=== PATIENT | female | born 1985 | race Two or more races ===

== ENCOUNTER 2022-10-03 19:46 | Observation (INO) | payer SELFPAY ==
[~2022-10-03] VITALS: Ht 165.1 cm; Wt 59.4 kg
== END 2022-10-03 21:31 | disposition home or self-care (01) ==
LOC: LDRP 19:46
PROVIDERS: ADMIT Obstetrics & Gynecology; ATTEND Obstetrics & Gynecology
DX: O26.893 Other specified pregnancy related conditions, third trimester (principal); R10.30 Lower abdominal pain, unspecified; R10.2 Pelvic and perineal pain; Z3A.36 36 weeks gestation of pregnancy
CPT/HCPCS: 59025; 81002; G0378

== ENCOUNTER 2022-10-25 13:15 | Inpatient (IN) | payer MEDICAID ==
[~2022-10-25] VITALS: Ht 154.9 cm; Wt 59.9 kg
[2022-10-25] MEDS ORDERED: PHISODERM TOP SOLN 240ML BTL TOP PRN (13:30)
[2022-10-25] MEDS ORDERED: DERMOPLAST 60ML BOTTLE TOP PRN (13:30)
[2022-10-25] MEDS ORDERED: LIDOCAINE 2%HCL (LOCAL ANESTH.) INJ 10ml MDV IJ PRN (13:30)
[2022-10-25] MEDS ORDERED: PROMETHAZINE HCL 25 MG/ML 1ML IV PRN (13:30)
[2022-10-25] MEDS ORDERED: WITCH HAZEL-GLYCERIN PAD TOP PRN (13:30)
[2022-10-25] MEDS ORDERED: BUTORPHANOL TARTRATE 2 MG/1 ML VIAL IV PRN ×2 (13:30)
[2022-10-25] MEDS ORDERED: miSOPROStol 50 MCG per PRE-CUT 1/2 TAB PO PRN (13:30)
[2022-10-25 14:54] LABS: Basophils # (auto) 0 10 ^3/uL (0-0.2); Basophils % (auto) 0.5 % (0.0-2.0); Eosinophils # (auto) 0.1 10 ^3/uL (0-0.8); Eosinophils % (auto) 0.9 % (0.0-7.0); Hematocrit 37.3 % (36.0-46.0); Hemoglobin 12.1 g/dL (12.2-16.2); Lymphocytes # (auto) 1.5 10 ^3/uL (0.4-5.4); Lymphocytes % (auto) 18.6 % (10.0-50.0); Mean Corpuscular Hemoglobin 26.3 pg (28.0-32.0); Mean Corpuscular Hgb Conc. 32.4 g/dL (32.0-36.0); Mean Corpuscular Volume 81.3 fL (80.0-100.0); Monocytes # (auto) 0.6 10 ^3/uL (0-1.3); Monocytes % (auto) 7.5 % (0.0-12.0); Neutrophils # (auto) 5.7 10 ^3/uL (1.6-8.6); Neutrophils % (auto) 72.5 % (37.0-80.0); Red Blood Cells 4.58 10^6/uL (4.0-5.20); Red Cell Distribution Width 16.8 % (11.8-14.3); White Blood Cell 7.9 10^3/uL (4.4-10.8)
[2022-10-25 15:03] LABS: Urine Bacteria NONE SEEN /hpf (None Seen); Urine Blood 1+ /uL (Negative); Urine Specific Gravity 1.007 (1.001-1.035); Urine WBC 1 /hpf (0 - 5)
[2022-10-25 15:17] LABS: INR 0.87 (0.9-1.15); Partial Thromboplastin Time 28.2 sec (24.6-33.4)
[2022-10-25 15:20] LABS: Alcohol, Urine < 3.0 mg/dL (0-10); Amphetamine Screen, Urine NEGATIVE (NEGATIVE); Barbiturate Scree,Urine NEGATIVE (NEGATIVE); Benzodiazephine Screen, Urine NEGATIVE (NEGATIVE); Cannabinoid Screen, Urine NEGATIVE (NEGATIVE); Cocaine Screen, Urine NEGATIVE (NEGATIVE); Opiate Scree,Urine NEGATIVE (NEGATIVE); Phencyclidine Screen, Urine NEGATIVE (NEGATIVE)
[2022-10-25 15:30] LABS: Anion Gap 9 (5-15); BUN/Creatinine Ratio 8.9; Blood Urea Nitrogen 5 mg/dL (7-18); Carbon Dioxide 22 mmol/L (21-32); Chloride 109 mmol/L (98-107); GFR African American 156 mL/min; GFR Non-African American 129 mL/min; Glucose 83 mg/dL (74-106); Potassium 3.9 mmol/L (3.5-5.1); Sodium 140 mmol/L (136-145)
[2022-10-25 15:32] LABS: Alanine Aminotransferase 18 U/L (13-56); Albumin 2.4 g/dL (3.4-5.0); Alkaline Phosphatase 203 U/L (45-117); Aspartate Aminotransferase 23 U/L (15-37); Bilirubin, Total 0.4 mg/dL (0.2-1.0); Calcium 8.5 mg/dL (8.5-10.1); Total Protein 7.3 g/dL (6.4-8.2)
[2022-10-25] MEDS ORDERED: ePHEDrine SULFATE 50 MG/ML AMP ONE (18:10)
[2022-10-25] MEDS ORDERED: fentaNYL CITRATE 100 MCG/2 ML VL ONE (18:10)
[2022-10-25] MEDS ORDERED: LIDOCAINE HCL 2 %PF INJ 10ML AMP IJ ONE ×2 (18:10→18:30)
[2022-10-25] MEDS ORDERED: ROPIVACAINE HCL 200 ML ONE (18:10)
[2022-10-25] MEDS ORDERED: LACT. RINGERS/OXYTOCIN 20UNITS 500 ML IV ONE ×2 (18:15→18:45)
[2022-10-25] MEDS ORDERED: TERBUTALINE SULFATE 1 MG/ML 1ML VIAL SC PRN (18:15)
[2022-10-25] MEDS ORDERED: NALOXONE HCL 0.4 MG/ML VIAL IV ONE (18:30)
[2022-10-25] MEDS ORDERED: ROPIVACAINE HCL 200 ML EPI SCH ×3 (18:30→19:00)
[2022-10-25] MEDS ORDERED: LACTATED RINGER'S 1,000 ML IV ONE (18:30)
[2022-10-25] MEDS ORDERED: fentaNYL CITRATE 100 MCG/2 ML VL IV ONE (18:30)
[2022-10-25] MEDS ORDERED: ePHEDrine SULFATE 50 MG/ML AMP IV ONE (18:30)
[2022-10-25] MEDS: LACTATED RINGER'S 1,000 ML IV SCH (19:28)
[2022-10-26] MEDS: LACTATED RINGER'S 1,000 ML IV SCH (03:02)
[2022-10-26] MEDS ORDERED: METHYLERGONOVINE MALEATE 0.2 MG/ML AMP IM ONE ×2 (04:28→05:30)
[2022-10-26] MEDS ORDERED: ONDANSETRON HCL 4 MG/2 ML VIAL ONE (04:33)
[2022-10-26] MEDS ORDERED: DOCU-94 PO (05:19)
[2022-10-26] MEDS ORDERED: CEPH500T PO (05:19)
[2022-10-26] MEDS ORDERED: ONDANSETRON ODT 4 MG TAB PO PRN (05:30)
[2022-10-26] MEDS: ceFAZolin 1GM/50ML 50 ML IV SCH ×3 (05:47→22:11)
[2022-10-26 06:44] VITALS: BP 134/54
[2022-10-26 11:00] VITALS: BP 107/51
[2022-10-26] MEDS: IBUPROFEN 600 MG TAB PO PRN ×3 (11:53→22:12)
[2022-10-26] MEDS: ACETAMINOPHEN 325 MG TAB PO PRN ×2 (11:54→19:21)
[2022-10-26 15:00] VITALS: BP 96/49
[2022-10-26 19:00] VITALS: BP 104/56
[2022-10-26] MEDS ORDERED: DOCUSATE SOD 100 MG CAP PO SCH (22:00)
[2022-10-26 23:00] VITALS: BP 94/54
[2022-10-27 03:00] VITALS: BP 97/62
[2022-10-27] MEDS: ACETAMINOPHEN 325 MG TAB PO PRN (03:42)
[2022-10-27] MEDS ORDERED: IBU600T PO (05:37)
[2022-10-27] MEDS: ceFAZolin 1GM/50ML 50 ML IV SCH (05:41)
[2022-10-27 06:55] VITALS: BP 106/58
[2022-10-27 07:06] LABS: Rubella Antibodies, IgG 2.72 index (Immune >0.99)
[2022-10-27 08:06] LABS: RPR Non Reactive (Non Reactive)
[2022-10-27] MEDS: IBUPROFEN 600 MG TAB PO PRN (10:57)
== END 2022-10-27 11:25 | disposition home or self-care (01) | DRG 560 ==
LOC: OBSVTOIN 13:15 → LDRP 13:15
PROVIDERS: ADMIT Obstetrics & Gynecology; ATTEND Obstetrics & Gynecology
PROC: 10E0XZZ Delivery of Products of Conception, External Approach (ICD-10-PCS; principal; 2022-10-26)
PROC: 0KQM0ZZ Repair Perineum Muscle, Open Approach (ICD-10-PCS; 2022-10-26)
PROC: 3E0R3BZ Introduction of Anesthetic Agent into Spinal Canal, Percutaneous Approach (ICD-10-PCS; 2022-10-26)
PROC: 00HU33Z Insertion of Infusion Device into Spinal Canal, Percutaneous Approach (ICD-10-PCS; 2022-10-26)
PROC: 0W8NXZZ Division of Female Perineum, External Approach (ICD-10-PCS; 2022-10-26)
DX: O69.81X0 Labor and delivery complicated by cord around neck, without compression, not applicable or unspecified (principal); Z37.0 Single live birth; O70.1 Second degree perineal laceration during delivery; Z20.822 Contact with and (suspected) exposure to COVID-19; Z3A.39 39 weeks gestation of pregnancy
CPT/HCPCS: 36415; 59025; 59409; 62282; 80053; 80307; 81001; 81002; 82962; 85025; 85610; 85730; 86592; 86703; 86762; 86803; 86850; 86900; 86901; 87340; 87426; 94760; 94762; 96360; 96361; 96365; 96366; 96372; 96374; G0378; J0690; J2405; J2590

== ENCOUNTER 2025-01-11 11:24 | Observation (INO) | payer MEDICAID ==
[~2025-01-11 11:24] MED LIST: CEPH500T PO; DOCU-94 PO; IBU600T PO
[2025-01-11] MEDS ORDERED: PREN-96 PO (12:35)
--- NOTE | 2025-01-12 05:48 | DVHDS2 ---
Physician Discharge Progress N Final Diagnosis: PLACENTA PREVIA,AMA Operations or Procedures: Operations or Procedures NST,SONO Condition on Discharge: Good Disposition: Home Discharge Instructions: Diet: Regular Activity: PELVIC REST Medications: NA Follow Up Care: Specialist: CS ON 01-21 Discharge Statement: "Patient was advised to return to the ER or call 911 if any headaches, dizziness, shortness of breath, chest pain, abdominal pain, bleeding, fevers, or worsening of medical condition. Patient was counseled about treatment plan, medications, possible side effects, patientverbalized understanding. All questions were answered to the best of my ability. This discharge took greater then 30 minutes in planning, reviewing documentation, counseling the patient, and discussing with other team members." Visit Coding OBGYN Date of Service: Jan 11, 2025 Billing Provider: JEANIE ARTEAGA DO SQL SERVER ARCHITECT Common Visit Codes: 83139-UHR/OBS SAME DATE (HIGH) SQL SERVER ARCHITECT Procedure Codes: 32130-37- NON-STRESS TEST JEANIE ARTEAGA DO Jan 12, 2025 05:48
== END 2025-01-11 12:42 | disposition home or self-care (01) ==
LOC: LDRP 11:24 → UNDOADMOB 11:31
PROVIDERS: ADMIT Obstetrics & Gynecology; ATTEND Obstetrics & Gynecology
DX: O44.03 Complete placenta previa NOS or without hemorrhage, third trimester (principal); O99.283 Endocrine, nutritional and metabolic diseases complicating pregnancy, third trimester; E03.9 Hypothyroidism, unspecified; O09.513 Supervision of elderly primigravida, third trimester; Z3A.35 35 weeks gestation of pregnancy; Z79.899 Other long term (current) drug therapy
CPT/HCPCS: 59025; 81002; 94760; G0378

== ENCOUNTER 2025-01-18 10:32 | Observation (INO) | payer MEDICAID ==
[~2025-01-18 10:32] MED LIST changes: +PREN-96 PO
--- NOTE | 2025-01-18 11:34 | DVH ---
BIOPHYSICAL PROFILE HISTORY: Complete Previa Comparison Study: None TECHNIQUE: Multiple real-time grayscale sonographic images through the gravid uterus of the fetus wi th duplex Doppler color flow and M-mode spectral analysis FINDINGS: BIOPHYSICAL PROFILE: breathing score: 2 movement score: 2 tone score: 2 Quantitative ISRAEL score: 2 (ISRAEL: 14.8 Cm.) Total score: 8 The cervix is not visualized Single live fetus in cephalic presentation. heart rate 136 beats per minute. Posterior placenta without previa or abruption IMPRESSION: Biophysical profile score: 8
--- NOTE | 2025-01-18 15:58 | DVHDS2 ---
Physician Discharge Progress N Final Diagnosis: placenyta previa 36wks Operations or Procedures: Operations or Procedures nst 36wks,sono Other Interventions Other Interventions seen by lucia Condition on Discharge: Good Disposition: Home Discharge Instructions: Diet: Regular Activity: No Restrictions, As Tolerated Medications: na Follow Up Care: Specialist: angel montalvo cs Discharge Statement: "Patient was advised to return to the ER or call 911 if any headaches, dizzin ess, shortness of breath, chest pain, abdominal pain, bleeding, fevers, or worsening of medical condition. Patient was counseled about treatment plan, medications, possible side effects, patientverbalized understanding. All questions were answered to the best of my ability. This discharge took greater then 30 minutes in planning, reviewing documentation, counseling the patient, and discussing with other team members." Visit Coding OBGYN Date of Service: Jan 18, 2025 Billing Provider: JEANIE ARTEAGA DO SEALS ENGRAVER Common Visit Codes: 04294-OXC/OBS SAME DATE (HIGH) SEALS ENGRAVER Consultation Codes: 24498-XNAHPHRTG CONSULT <55MIN SEALS ENGRAVER Procedure Codes: 14722-48- NON-STRESS TEST JEANIE ARTEAGA DO Jan 18, 2025 15:58
== END 2025-01-18 11:55 | disposition home or self-care (01) ==
LOC: UNDOADMOB 10:32 → LDRP 10:32 → UNDODISOB 11:55
PROVIDERS: ADMIT Obstetrics & Gynecology; ATTEND Obstetrics & Gynecology
DX: O44.03 Complete placenta previa NOS or without hemorrhage, third trimester (principal); Z3A.36 36 weeks gestation of pregnancy; Z79.899 Other long term (current) drug therapy; Z98.890 Other specified postprocedural states
CPT/HCPCS: 59025; 76818; 81002; 94760; G0378

== ENCOUNTER 2025-01-20 06:50 | Inpatient (IN) | payer MEDICAID ==
[~2025-01-20] VITALS: Ht 157.5 cm; Wt 54.4 kg
[2025-01-20 09:41] LABS: Eosinophils # (auto) 0.1 10 ^3/uL (0-0.8); Lymphocytes # (auto) 1.4 10 ^3/uL (0.4-5.4)
[2025-01-20 09:43] LABS: Basophils # (auto) 0 10 ^3/uL (0-0.2); Basophils % (auto) 0.5 % (0.0-2.0); Eosinophils % (auto) 1.1 % (0.0-7.0); Hematocrit 35.1 % (36.0-46.0); Hemoglobin 11.4 g/dL (12.2-16.2); Lymphocytes % (auto) 19.8 % (10.0-50.0); Mean Corpuscular Hemoglobin 25.7 pg (28.0-32.0); Mean Corpuscular Hgb Conc. 32.5 g/dL (32.0-36.0); Mean Corpuscular Volume 79.2 fL (80.0-100.0); Monocytes # (auto) 0.6 10 ^3/uL (0-1.3); Monocytes % (auto) 9.1 % (0.0-12.0); Neutrophils # (auto) 4.8 10 ^3/uL (1.6-8.6); Neutrophils % (auto) 69.5 % (37.0-80.0); Platelet Count (auto) 169 10^3/uL (140-450); Red Blood Cells 4.44 10^6/uL (4.0-5.20); Red Cell Distribution Width 18.9 % (11.8-14.3); White Blood Cell 6.9 10^3/uL (4.4-10.8)
[2025-01-20 09:57] LABS: Alanine Aminotransferase 13 U/L (7-40); Albumin 3.8 g/dL (3.2-4.8); Aspartate Aminotransferase 21 U/L (13-40); Chloride 106 mmol/L (98-107); Glucose 78 mg/dL (74-106); Potassium 3.7 mmol/L (3.5-5.1); Sodium 138 mmol/L (136-145)
[2025-01-20 09:58] LABS: Bilirubin, Total 0.5 mg/dL (0.2-1.0); Total Protein 6.5 g/dL (5.7-8.2)
[2025-01-20 10:07] LABS: INR 0.88 (0.9-1.15); Partial Thromboplastin Time 26.8 SEC (24.5-34.5); Prothrombin Time 9.4 sec (9.3-11.8)
[2025-01-20 10:09] LABS: Alkaline Phosphatase 142 U/L (46-116); BUN/Creatinine Ratio 8.6 (10.0-20.0); Blood Urea Nitrogen < 5 mg/dL (9-23); Calcium 8.5 mg/dL (8.7-10.4)
[2025-01-20 10:54] LABS: Anion Gap 8 (5-15); Carbon Dioxide 24 mmol/L (20-31)
[2025-01-21] VITALS (13 sets, daily range): BP systolic 88–117; BP diastolic 26–64; PULSE 61–78; RESP 15–22; TEMP 97.7–98; O2SAT 95–100
--- NOTE | 2025-01-21 07:00 | DVHHP2 ---
OB CC & HPI Date Date of Admission: Jan 21, 2025 Patient Identification: : 3 Para: 2 EDC: Jan 21, 2025 EGA: 37 + placenta previa patient had positive urine test at 3 weeks Chief Complaints: Reason for admission: section (Patient had 1st trimester ultrasound confirming dates as well as urine test 1st trimester/serum quant HCG) Indication for : other (placenta previa) Other reason for admission: Dr. Gamboa had scheduled this patient for section secondary to placenta previa. Patient had been counseled to be sectioned by perinatology. Kelsie PLASCENCIA' I am covering on the weekend and she was scheduled on my Wednesday call by Dr Gamboa based on Kelsie's recommendation. Dr Gamboa and I discussed the case in person. 01/20/2024; and has history of hyperthyroid on medication. Admission Nurse Assessment Rev: Yes History of Present Complaints We discussed the risks benefits complications alternatives not limited to pulmonary hypoplasia morbidity and mortality. Risks benefits of continuing with placenta previa. We also discussed general risks infection bleeding anesthesia acute chronic pain damage to adjacent organs bowel bladder ureters nerves muscles. We discussed acute chronic pain nerve entrapment risks. The general risks of DVT PE mi stroke . Patient understands risks associated with subsequent pregnancies versus elective . She had originally consented for tubal ligation but changed her mind and would like to use some other form of control at this time. All questions answered and encouraged. Kelsie PLASCENCIA perinatology. Past Medical History Cardiac: No pertinent Hx Pulmonary: No pertinent Hx Central Nervous System: No pertinent Hx GI: No pertinent Hx Hemotology/Oncology: No pertinent Hx Hepatobiliary: No pertinent Hx Psychiatric: No pertinent Hx Musculoskeletal: No pertinent Hx Rheumotologic: No pertinent Hx Infectious Disease: No peritnent Hx ENT: No pertinent Hx Renal/: No pertinent Hx Endocrine: Hyperthyroidism Dermatology: No pertinent Hx Past Surgical History: No pertinent Hx OB History OB History Care: Good Care Ultrasounds: Normal mid trimester US Obstetrical Complications: None, Other (placenta previa) Medical Complications: None Allergies: Coded Allergies: NO KNOWN ALLERGIES (Unverified , 10/25/22) Home Meds Active Scripts Ibuprofen Micronized (MOTRIN TABLET) 600 Mg Tb, 600 MG PO Q6HP PRN, #20 TAB Prov:REESE,JAZMA Y DO 10/27/22 Docusate Sodium (Colace) 100 Mg Cap, 1 CAP PO BID, #60 CAP 2 Refills Prov:JEANIE GAMBOA DO 10/26/22 Cephalexin Monohydrate (Cephalexin) 500 Mg Tab, 1 TAB PO QID for 7 Days, #28 TAB Prov:JEANIE GAMBOA DO 10/26/22 Reported Medications Vit W/ Ferrous Fumara ( One Daily) Daily Tab, 1 TAB PO DAILY, #30 TAB 11 Refills 01/11/25 Family & Social History Family/Social History Blood Type: Unknown Rubella: unknown RPR/VDRL: Unknown GBS Status: Unknown HBsAG: Unknown (Lab results pending) Review of Systems Constitutional: No symptom reported Ears, Nose, & Throat: No symptom reported Eyes: No symptom reported Pulmonary/Respiratory: No symptom reported Cardiovascular: No symptom reported Gastrointestinal: No symptom reported Genitourinary: No symptom reported Musculoskeletal: No symptom reported Skin: No symptom reported Psychiatric: No symptom reported Endocrine: No symptom reported Hemotologic/Lymphatic: No symptom reported OB Admission Exam Physical Exam HEENT: TMs Normal, Fontanelles Normal, Nasal Mucosa Normal, Eyes non-injected, Oropharynx Normal, PERRLA, Moist Membranes, EOMI Heart: Rhythm Normal Lungs: Clear Abdomen: Non tender Extremities: Normal Reflexes: Normal Cervical Dilatation: None Heart Rate: 140's Decelerations: No Decelerations Short Term Variability: Present Penitentiary Variability: Average (6-25) Contractions on Admission: None OB Plan Plan Admitting Diagnosis: 37 weeks , Placenta previa, hyper thyroid' Supervisor Lending Activities: Mimi side trimmer Plan: Section Other Plan: Restart her hyperthyroid meds as well as routine recovery orders status post . HERLINDA ALEXANDRA DO Jan 21, 2025 06:59
--- NOTE | 2025-01-21 08:26 | DVHOP2 ---
Operative Report - 2 Report Details Date: 01/21/25 Preop Diagnosis: Thirty-seven weeks intrauterine placenta previa abdominal pain Postop Diagnosis: Same Surgeon: Edinson Caicedo Hull Line Crew Member: Martín RICErn neurosurgicalsurgical technologist Anesthesiologist: NOE Barragan Anesthesia: Regional (Spinal) Drains: Jesus catheter Implant: None Consent: The patient was informed of the risks and benefits of the procedure. These include but are not limited to complications of anesthesia, postoperative infection, incomplete relief of symptoms, recurrence of symptoms, damage to blood vessels, nerves and tendons, deep venous thrombosis, pulmonary embolism and possible need for repeat surgery in the future. Estimated Blood Loss: 600 cc Findings: Vigorous cry and tone, 08/07, male Indications for Surgery: Partial previa Name of Procedure Performed Primary low transverse section Procedure Details Procedure Details: Patient brought to the operating room placed in sitting position spinal placed without difficulty she was then placed left lateral tilt prepped draped sterile fashion. Low Pfannenstiel incision used with scalpel down to the rectus muscles were just nicked in midline carried laterally with scissors rectus muscle midline peritoneum identified entered with sharp dissection peritoneal incision was then extended this cephalad and caudad vesicouterine peritoneum was then identified and dissected off lower uterine segment low-transverse incision made with scalpel down to the current membranes were hour glassing clear amniotic fluid. Chorionic membranes were ruptured infant found in vertex position we could place a lower uterine segment and infant's head essentially delivered spontaneously nose and mouth bulb suctioned shoulders and torso also delivered without difficulty. Cord clamp delay was performed for 60 seconds then away handed off to awaiting respiratory and nursing team. Umbilical blood sample removed blood cord gas was also taken placenta removed bluntly uterus exteriorized cleared of all clots and debris and closed with double layer of 0 Vicryl. The previa appeared to be posterior lower uterine segment. Compl ete hemostasis achieved the vesicouterine peritoneum was incorporated into the 2nd layer of uterine closure. This point the gutters cul de sacs adnexa were all cleared of all clots and debris irrigated. Uterus having been placed in utero incision with good hemostasis peritoneum closed with running continuous 2- 0 Vicryl after instrument sponge count correct x1. Rectus muscle then closed running continuous of 0 PDS after ensuring the rectus muscles had excellent hemostasis. Camper's Abhi's fascia closed with interrupted sutures of 2-0 chromic skin closed with 2-0 sub Q prolene on Keif needle, uterus vaginal lower uterine segment cleared of all clots and debris bluntly bluntly with good uterine tone. Specimen: Placenta umbilical cord blood umbilical cord gas Condition Good Disposition PACU for mom and nursery for . HERLINDA CAICEDO DO Jan 21, 2025 08:26
[2025-01-21] MEDS ORDERED: ceFAZolin 2 GM/D5W50ml 50 ML IV ONE ×2 (09:15→09:46)
[2025-01-21] MEDS ORDERED: LACTATED RINGER'S 1,000 ML IV ONE (09:15)
[2025-01-21] MEDS ORDERED: KETOROLAC TROMETH 30 MG/ML 1ML VIAL ONE (09:26)
[2025-01-21] MEDS ORDERED: DexAMETHasone SOD PHOS 10MG/1ML VIAL INJ ONE (09:26)
[2025-01-21] MEDS ORDERED: LIDOCAINE 1% (LOCAL ANESTH.) PF 5ml SDV ONE (09:26)
[2025-01-21] MEDS ORDERED: ONDANSETRON HCL 4 MG/2 ML VIAL ONE (09:26)
[2025-01-21] MEDS ORDERED: oxyTOCIN 10 UNIT/ML 10ML VIAL ONE (09:27)
[2025-01-21] MEDS ORDERED: fentaNYL CITRATE 100 MCG/2 ML VL ONE (09:27)
[2025-01-21] MEDS ORDERED: MORPHINE SULF PF 5 MG/10 ML VIAL ONE (09:27)
[2025-01-21] MEDS ORDERED: ePHEDrine SULFATE 50 MG/ML AMP ONE (11:26)
[2025-01-21] MEDS ORDERED: HYDROmorphone HCL 2 MG/ML VL/or syr IV PRN (12:30)
[2025-01-21] MEDS ORDERED: NALBUPHINE HCL 10 MG/1ml INJECTION IV ONE (12:30)
[2025-01-21] MEDS ORDERED: ceFAZolin 1GM/50ML 50 ML IV SCH (12:30)
[2025-01-21] MEDS ORDERED: SODIUM CHLORIDE 0.9% 1,000 ML IV SCH (12:30)
[2025-01-21] MEDS ORDERED: diphenhdrAMINE HCL 50 MG/1 ML VL IV PRN (12:30)
[2025-01-21] MEDS ORDERED: NALOXONE HCL 0.4 MG/ML VIAL IV PRN (12:30)
[2025-01-21] MEDS ORDERED: NS/OXYTOCIN 20UNITS 1,000 ML IV SCH (12:30)
[2025-01-21] MEDS ORDERED: MORPHINE SULFATE 4 MG/ML SYR/VIAL IV PRN (12:30)
[2025-01-21] MEDS ORDERED: ONDANSETRON HCL 4 MG/2 ML VIAL IV PRN ×2 (12:30)
[2025-01-21 12:52] LABS: Urine Bacteria FEW /hpf (None Seen); Urine Blood Negative /uL (Negative); Urine Clarity Clear (Clear); Urine Color Light-Yellow (Yellow); Urine Protein, UAD Negative (Negative); Urine Specific Gravity 1.008 (1.001-1.035); Urine Squamous Epithelial Cell FEW /hpf (<5); Urine Urobilinogen Normal (Negative); Urine WBC 1 /HPF (0-5)
[2025-01-21 12:58] LABS: Amphetamine Screen, Urine Neg (NEGATIVE); Barbiturate Scree,Urine Neg (NEGATIVE); Benzodiazephine Screen, Urine Neg (NEGATIVE)
[2025-01-21 12:59] LABS: Cannabinoid Screen, Urine Neg (NEGATIVE); Cocaine Screen, Urine Neg (NEGATIVE); Opiate Scree,Urine Neg (NEGATIVE); Phencyclidine Screen, Urine Neg (NEGATIVE)
[2025-01-21] MEDS: LACTATED RINGER'S 1,000 ML IV SCH (20:15)
[2025-01-21] MEDS: ceFAZolin 1GM/50ML 50 ML IV SCH (20:15)
[2025-01-21] MEDS: ACETAMINOPHEN IV 1000 MG/100ML (10MG/ML) IV PRN (20:16)
[2025-01-22] VITALS (15 sets, daily range): BP systolic 85–104; BP diastolic 38–67; PULSE 61–92; RESP 16–18; TEMP 97.9–98.7; O2SAT 95–97
--- NOTE | 2025-01-22 05:54 | DVHPN2 ---
Chief Complaints Patient reports: No new complaints, Feels better, Other (minimal lochia pain controlled 03/08) Nursing reports: No new complaints, No abdominal pain, No chest pain, No dizziness, No cough Objective Vitals Vital Signs Date Time Temp Pulse Resp B/P (MAP) Pulse Ox O2 Delivery O2 Flow Rate FiO2 01/22/25 02:00 66 17 85/47 (60) 95 01/21/25 23:00 98.0 98.0 01/21/25 19:00 Room Air 01/21/25 12:17 98 Medications Current Medications Medications (Trade) Dose Ordered Sig/Carl Route PRN Reason Start Time Stop Time Status Last Admin Acetaminophen (Ofirmev) 1,000 mg Q8H PRN IV PAIN SCALE 4-6 OR TEMP>100.4 01/21/25 17:30 01/21/25 20:16 Cefazolin Sodium 50 ml @ 100 mls/hr Q8H IV 01/21/25 19:00 01/22/25 11:29 01/22/25 02:59 Diphenhydramine HCl (Benadryl Injection) 25 mg Q4HP PRN IV FOR ITCHING 01/21/25 12:30 Lactated Ringer's 1,000 ml @ 125 mls/hr Q8H IV 01/21/25 09:15 01/21/25 20:15 Morphine Sulfate 2 mg Q4HP PRN IV SEVERE PAIN (7-10 PAIN SCALE) 01/21/25 12:30 Ondansetron HCl (Zofran) 4 mg Q4HP PRN IV NAUSEA / VOMITING 01/21/25 12:30 Oxytocin 1,000 ml @ 125 mls/hr Q8H IV 01/21/25 12:30 Cancel General: Normal Head/Eyes: Normal Neck: Normal Lungs: Normal Cardiovascular: Normal Abdominal: Normal (wound c/d/I ) Musculoskeletal: Normal Extremities: Normal (without pain or edema) Neurological: Normal Studies Laboratory Tests 01/20/25 09:23 Test 01/20/25 09:23 Range/Units Serum Glucose 78 74-106 mg/dL Ass/Plan Assessment POD #1 stable improved Plan advance care HERLINDA ALEXANDRA DO Jan 22, 2025 05:53
[2025-01-22] MEDS ORDERED: HYDROcodone-ACET 10/325MG TAB PO PRN (08:00)
[2025-01-22] MEDS ORDERED: HYDROcodone-ACET 5/325MG TAB PO PRN (08:00)
[2025-01-22] MEDS: HYDROcodone-ACET 5/325MG TAB PO PRN (08:05)
[2025-01-22 09:15] LABS: Basophils # (auto) 0 10 ^3/uL (0-0.2); Basophils % (auto) 0.2 % (0.0-2.0); Eosinophils # (auto) 0 10 ^3/uL (0-0.8); Eosinophils % (auto) 0.2 % (0.0-7.0); Red Blood Cells 3.42 10^6/uL (4.0-5.20)
[2025-01-22 09:18] LABS: Hematocrit 27.1 % (36.0-46.0); Hemoglobin 8.7 g/dL (12.2-16.2); Lymphocytes # (auto) 1.5 10 ^3/uL (0.4-5.4); Lymphocytes % (auto) 12.2 % (10.0-50.0); Mean Corpuscular Hemoglobin 25.4 pg (28.0-32.0); Mean Corpuscular Volume 79.3 fL (80.0-100.0); Neutrophils # (auto) 9.8 10 ^3/uL (1.6-8.6); Neutrophils % (auto) 79.4 % (37.0-80.0); Platelet Count (auto) 138 10^3/uL (140-450); Red Cell Distribution Width 18.5 % (11.8-14.3); White Blood Cell 12.4 10^3/uL (4.4-10.8)
[2025-01-22 09:43] LABS: Alanine Aminotransferase 19 U/L (7-40); Alkaline Phosphatase 100 U/L (46-116); Anion Gap 9 (5-15); Aspartate Aminotransferase 22 U/L (13-40); BUN/Creatinine Ratio 11.8 (10.0-20.0); Bilirubin, Total 0.7 mg/dL (0.2-1.0); Carbon Dioxide 24 mmol/L (20-31); Chloride 106 mmol/L (98-107); Glucose 82 mg/dL (74-106); Sodium 139 mmol/L (136-145)
[2025-01-22 09:50] LABS: Albumin 2.9 g/dL (3.2-4.8); Blood Urea Nitrogen 6 mg/dL (9-23); Calcium 8.3 mg/dL (8.7-10.4); Total Protein 4.9 g/dL (5.7-8.2)
[2025-01-22] MEDS: DOCUSATE SOD 100 MG CAP PO SCH (10:27)
[2025-01-22] MEDS: SIMETHICONE 80 MG CHEWABLE TABLET PO SCH (12:15)
[2025-01-22] MEDS: IBUPROFEN 800 MG TAB PO PRN (18:35)
[2025-01-23 03:13] VITALS: BP 92/48; PULSE 64; RESP 16; TEMP 98.2; O2SAT 98
[2025-01-23 04:07] LABS: RPR Non Reactive (Non Reactive)
--- NOTE | 2025-01-23 05:47 | DVHPN2 ---
Progress Note Date Seen: Jan 23, 2025 Subjective POD#2 s/p 1' C/S at 37 wk for placenta previa without hemorrhage S: Doing well. Pain controlled. Flatus+. No fever/chills. vital signs Vital Sign Date Time Temp Pulse Resp B/P (MAP) Pulse Ox O2 Delivery O2 Flow Rate FiO2 01/23/25 03:13 98.2 64 16 92/48 (63) 98 98.2 01/22/25 19:00 Room Air 01/21/25 12:17 98 Total Intake and Output 01/22/25 01/22/25 01/23/25 15:00 23:00 07:00 Output Total 1300 ml 800 ml Balance -1300 ml -800 ml medications Current Medications Medications Dose Ordered Sig/Carl Route Start Time Stop Time Status Last Admin Dose Admin Lactated Ringer's 1,000 ml @ 125 mls/hr Q8H IV 01/21/25 09:15 01/21/25 20:15 125 MLS/HR Diphenhydramine HCl 25 mg Q4HP PRN IV 01/21/25 12:30 Ondansetron HCl 4 mg Q4HP PRN IV 01/21/25 12:30 Oxytocin 1,000 ml @ 125 mls/hr Q8H IV 01/21/25 12:30 Cancel Morphine Sulfate 2 mg Q4HP PRN IV 01/21/25 12:30 Docusate Sodium 100 mg Q12HR PO 01/22/25 10:00 01/22/25 22:38 100 MG Dimethicone 80 mg QID PO 01/22/25 12:00 01/22/25 22:38 80 MG Ibuprofen 800 mg Q8HP PRN PO 01/22/25 06:30 01/23/25 03:08 800 MG Acetaminophen/ Hydrocodone Bitart 1 tab Q4HPRN PRN PO 01/22/25 06:30 Acetaminophen/ Hydrocodone Bitart 2 tab Q4HPRN PRN PO 01/22/25 08:15 01/22/25 22:59 2 TAB laboratory and microbiology Laboratory Tests 01/22/25 08:54 Test 01/22/25 08:54 Range/Units Serum Glucose 82 74-106 mg/dL Objective O: AFVSS Chest: heart and lung sounds normal. Abd soft, non-tender, fundus firm, BS, no rebound or guarding, Incision - dressing and incision clean, dry, intact Ext Neg Homans, Non-tender, edema Lochia - minimal Labs Pending repeat for today Assessment/Plan POD#2 s/p 1' C/S placenta previa precipitous drop in H/H, asymptomatic History of thyroid disorder Plan: Continue current supportive care repeat CBC and TSH today D/C planning Plan discussed with: Patient Visit Coding OBGYN Date of Service: Jan 23, 2025 Billing Provider: ABEBE JOHNSON DO PAPER PRODUCTS SUPERVISOR Common Visit Codes: [id number] INP/OBS CARE(HIGH) ABEBE JOHNSON DO Jan 23, 2025 05:47
[2025-01-23 07:00] VITALS: BP 104/59; PULSE 68; RESP 16; TEMP 97.9; O2SAT 95
[2025-01-23] MEDS ORDERED: HYDR-4902 PO (07:11)
[2025-01-23 07:13] LABS: Basophils # (auto) 0 10 ^3/uL (0-0.2); Eosinophils # (auto) 0.1 10 ^3/uL (0-0.8); Lymphocytes # (auto) 1.3 10 ^3/uL (0.4-5.4); Mean Corpuscular Volume 79.9 fL (80.0-100.0)
--- NOTE | 2025-01-23 07:14 | DVHDS2 ---
Physician Discharge Progress N Final Diagnosis: Early Term delivered by 1' c/section Secondary Diagnosis: Partial Placenta previa Operations or Procedures: Operations or Procedures 1' low transv c/section Condition on Discharge: Stable Disposition: Home Discharge Instructions: Diet: Regular Activity: Light activity Activity comment: Pelvic rest 6 wk Follow Up/Referral: [address] Gamboa wound check Medications: Ibuprofen and norco Follow Up Care: Discharge Statement: "Patient was advised to return to the ER or call 911 if any headaches, dizziness, shortness of breath, chest pain, abdominal pain, bleeding, fevers, or worsening of medical condition. Patient was counseled about treatment plan, medications, possible side effects, patientverbalized understanding. All questions were answered to the best of my ability. This discharge took greater then 30 minutes in planning, reviewing documentation, counseling the patient, and discussing with other team members." Visit Coding OBGYN Date of Service: Jan 23, 2025 Billing Provider: ABEBE JOHNSON DO CERTIFIED NOVELL ENGINEER Common Visit Codes: 95912-UEI/OBS DISCH DAY <30MIN ABEBE JOHNSON DO Jan 23, 2025 07:14
[2025-01-23 07:15] LABS: Basophils % (auto) 0.2 % (0.0-2.0); Eosinophils % (auto) 0.9 % (0.0-7.0); Hematocrit 28.1 % (36.0-46.0); Lymphocytes % (auto) 9.8 % (10.0-50.0); Mean Corpuscular Hemoglobin 25.7 pg (28.0-32.0); Mean Corpuscular Hgb Conc. 32.1 g/dL (32.0-36.0); Monocytes # (auto) 0.7 10 ^3/uL (0-1.3); Monocytes % (auto) 5.6 % (0.0-12.0); Neutrophils # (auto) 10.9 10 ^3/uL (1.6-8.6); Neutrophils % (auto) 83.5 % (37.0-80.0); Platelet Count (auto) 148 10^3/uL (140-450); Red Blood Cells 3.52 10^6/uL (4.0-5.20); Red Cell Distribution Width 18.7 % (11.8-14.3)
[2025-01-23] MEDS: HYDROcodone-ACET 5/325MG TAB PO PRN (10:27)
[2025-01-23 11:07] LABS: Treponema Pallidum Ab LC Non Reactive (Non Reactive)
[2025-01-23 15:15] VITALS: BP 106/44; PULSE 72; RESP 16; TEMP 98.4; O2SAT 97
[2025-01-23 16:24] VITALS: BP 115/54
== END 2025-01-23 17:38 | disposition home or self-care (01) | DRG 540 ==
LOC: OBSVTOIN 01-21 07:00 → LDRP 01-21 07:00
PROVIDERS: ADMIT Obstetrics & Gynecology; ATTEND Obstetrics & Gynecology
PROC: 10D00Z1 Extraction of Products of Conception, Low, Open Approach (ICD-10-PCS; principal; 2025-01-21 11:13)
DX: O44.20 Partial placenta previa NOS or without hemorrhage, unspecified trimester (principal); R71.0 Precipitous drop in hematocrit; Z37.0 Single live birth; Z3A.37 37 weeks gestation of pregnancy
CPT/HCPCS: 36415; 59025; 80053; 80307; 81001; 81002; 84443; 85025; 85610; 85730; 86592; 86780; 86803; 86850; 86900; 86901; 94760; 94762; 96360; 96361; 96365; 96366; G0378; J0131; J1100; J1885; J2405; J2590